=== PATIENT | male | born 1985 | race Caucasian/White ===

== ENCOUNTER 2019-05-12 06:19 | Emergency (ER) | payer OTHER ==
[~2019-05-12] VITALS: Ht 182.9 cm; Wt 156.5 kg
[2019-05-12 06:24] VITALS: Ht 182.9 cm; Wt 156.5 kg
[2019-05-12 08:03] LABS: BASOPHIL % 0.8 % (0-2); PLATELET COUNT 249 x10^3mcL (130-400); RED CELL DISTRIBUTION WIDTH 14.2 % (11.5-14.5)
[2019-05-12 08:16] LABS: CALCIUM 7.7 mg/dL (8.5-10.1); CARBON DIOXIDE 30.7 mmol/L (21-32); CHLORIDE SERUM 109 mmol/L (98-107); CREATININE SERUM 0.8 mg/dL (0.7-1.3); GFR1 > 60 mL/min; GLUCOSE SERUM 140 mg/dL (74-106); POTASSIUM SERUM 4.1 mmol/L (3.5-5.1); SODIUM SERUM 144 mmol/L (136-145)
[2019-05-12 08:21] LABS: ALKALINE PHOSPHATASE 140 U/L (46-116); ALT/SGPT 134 U/L (16-63); AST/SGOT 76 U/L (15-37); BILIRUBIN TOTAL 0.1 mg/dL (0.20-1.00); LIPASE 153 IU/L (73-393)
[2019-05-12 08:24] LABS: ALBUMIN 3.2 g/dL (3.4-5.0)
[2019-05-12 12:14] VITALS: BP 142/74
== END 2019-05-12 11:15 | disposition home or self-care (01) ==
LOC: ED 06:19
PROVIDERS: Emergency Medicine
DX: R07.89 Other chest pain (principal); K21.9 Gastro-esophageal reflux disease without esophagitis; I10 Essential (primary) hypertension; E66.9 Obesity, unspecified; E78.5 Hyperlipidemia, unspecified; E78.00 Pure hypercholesterolemia, unspecified
CPT/HCPCS: 36415; 83880; G0480; J7030; Q0092

== ENCOUNTER 2020-01-15 15:11 | Emergency (ER) | payer OTHER, SELFPAY ==
[~2020-01-15] VITALS: Ht 172.7 cm; Wt 113.4 kg
[2020-01-15 17:35] VITALS: Ht 172.7 cm; Wt 113.4 kg
[2020-01-15 18:30] VITALS: BP 128/78
== END 2020-01-15 18:30 | disposition home or self-care (01) ==
LOC: ED 15:11
DX: U07.1 COVID-19 (principal)
CPT/HCPCS: 83880; 85378; 87804; Q0092; U0003-CS